=== PATIENT | female | born 1960 | race Caucasian/White ===

== ENCOUNTER 2025-01-29 09:49 | Emergency (ER) | payer OTHER, SELFPAY ==
--- OUTSIDE RECORDS SUMMARY | 2025-01-29 09:53 | XMS_ITS | Clinical Summary ---
Author Organization [facility] Address [address] [place] [address] Care Team Providers Care Stripper Opaquer Name Role Phone Joey Sanchez MD Primary Care Provider [phone] Allergies No known active allergies Medications multivitamin tablet tablet take 1 tablet by oral route every day with food 0 05/20/2011 Active cholecalciferol (VITAMIN D3) 2,000 unit tablet take 1 by oral route every day 0 10/13/2012 Active Active Problems Problem Noted Date Diagnosed Date Mastitis 08/30/2024 Assessment & Plan (08/30/2024 10:17 AM CDT): Appears to be a cellulitis of the lower half of right breast with implant and hx of radiation therapy. Recommend going to [facility] where her heme/onc doctor is located as we do not have plastic surgery at [facility] at this time. May need IV antibiotics. Patient agrees with plan. 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 Overview (07/31/2016): MIXED HYPERLIPIDEMIA Osteopenia 10/30/2012 Overview (08/02/2016): Osteopenia Malignant neoplasm of breast 10/13/2012 Overview (08/02/2016): Breast cancer Encounters Date Type Department Care Team Description 12/09/2024 4:16 PM CDT - 12/09/2024 11:59 PM CDT Hospital Encounter [facility] [address] [place] [address] Screening mammogram, encounter for Discharge Disposition: Discharge to home or self care from Last 3 Months Surgical History Surgery Date Site/Laterality Comments MASTECTOMY 04/28/2009 - 04/27/2010 Mastectomy OTHER SURGICAL HISTORY 04/28/2009 - 04/27/2010 Cancer, breast: mastectomy-breast reconstruction OTHER SURGICAL HISTORY 04/28/2009 - 04/27/2010 Stage IIIA (T2N2M0) right sided breast cancer: Right mastectomy and chemotherapy OTHER SURGICAL HISTORY Left breast lift with small implant OTHER SURGICAL HISTORY port placement for chemo OTHER SURGICAL HISTORY 04/28/1997 - 04/27/1998 LEEP cone bx of cervix OTHER SURGICAL HISTORY 08/02/2015 LGSIL and HR HPV: LEEP HYSTEROSCOPY 08/20/2017 Rt vulvar biopsy CERVICAL BIOPSY W/ LOOP ELECTRODE EXCISION 08/20/2017 HYSTERECTOMY 05/24/2020 Medical History Medical History Date Comments Hx Other Medical Genital warts a ge 18 Hx Other Medical 2009 LGSIL pap Hx Other Medical LGSIL and HR HP V; Comments: JT 08/29/2015 - path was benign. Abnormal Pap smear of cervix [place], ASCUS, HPV Breast cancer, right (HCC) 2009 Stage IIIA (T2N2M0) right sided breast cancer History of chemotherapy History of radiation therapy Family History Medical History Relation Name Comments Other Brother 2 Alive and well; Lung cancer Father Cancer -lung; / Cancer, lung; Other Father Lip Cancer; Prostate cancer Father Cancer -pros raygoza; /Cancer, prostate; Breast cancer Father's Sister Cancer, erasmo ast; Depression Mother Depression; Relation Name Status Comments Brother 1 Alive Brother 2 Father Alive Father's Sister Mother Alive Social History Tobacco Use Types Packs/Day Years Used Date Smoking Tobacco: Never Smokeless Tobacco: Never Tobacco Cessation:Counseling Given: Not Answered Alcohol Use Standard Drinks/Week Comments Yes 0 (1 standard drink = 0.6 oz pur e alcohol) socially PHQ-2 Answer Date Recorded PHQ-2 Total Score (If total score is 3 or more points, staff should administer the PHQ-9) 0 05/12/2023 Comments No Sex and Gender Information Value Date Recorded Sex Assigned at Not on file Legal Sex Female 6:06 PM COMPUTER SYSTEMS SOFTWARE ENGINEER Gender Identity Female 06/19/2020 12:40 PM COMPUTER SYSTEMS SOFTWARE ENGINEER Sexual Orientation Not on file Obstetrics History Para Term AB IAB SAB Ectopic Multiple Livin g Live Births 2 2 2 2 2 Date Outcome GA Total Labor Labor/2nd/3rd Weight Sex Type Anes PTL Casie A1 A5 Name Clin 8 Term 40w 0d F Vag-S pont Living 1 Term 40w 0d F Vag-S pont Living Last Filed Vital Signs Vital Sign Reading Time Taken Comments Blood Pressure 122/78 08/30/2024 9:40 AM CDT Pulse 78 05/25/2020 7:00 AM COMPUTER SYSTEMS SOFTWARE ENGINEER Temperature 36.5 C (97.7 F) 05/24/2020 10:50 AM COMPUTER SYSTEMS SOFTWARE ENGINEER Respiratory Rate 18 05/25/2020 7:00 AM COMPUTER SYSTEMS SOFTWARE ENGINEER Oxygen Saturation 100% 05/25/2020 7:00 AM COMPUTER SYSTEMS SOFTWARE ENGINEER Inhaled Oxygen Concentration - - Weight 67.6 kg (149 lb) 12/09/2024 4:19 PM CDT Height 162.6 cm (5' 4) 08/30/2024 9:40 AM CDT Body Mass Index 25.58 08/30/2024 9:40 AM CDT Plan of Treatment Health Maintenance Due Date Last Done Comments Hepatitis C Screening 1960 DTaP/Tdap/Td Vaccine (1 - Tdap) 07/29/1971 Hepatitis B Screening 1978 Zoster Vaccine (1 of 2) 2010 Colon Cancer Screening-Colonoscopy 10/13/2022 10/13/2012 Depression Screening 05/12/2024 05/12/2023, 10/06/2018, 08/11/2017 Influenza Vaccine (#1) 2024 Regular Well Visit/Exam 18-64 08/09/2025 08/09/2024, 05/12/2023, 04/17/2022, Additional history exists Breast Cancer Screening-Mammogram 12/09/2025 12/09/2024, 05/29/2023, 02/13/2022, Additional history exists Colon Cancer Screening-CT Colonography Discontinued 10/13/2012 Colon Cancer Screening-DNA Stool Discontinued 10/13/2012 Colon Cancer Screening-FIT Discontinued 10/13/2012 Colon Cancer Screening-Sigmoidoscopy Discontinued 10/13/2012 Cervical Cancer Screening Discontinued 2021, 02/27/2021, 10/20/2019, Additional history exists Pneumococcal vaccine <65 Aged Out No longer eligible based on patient's age to complete this topic Procedures Procedure Name Priority Date/Time Associated Diagnosis Comments SCREENING MAMMOGRAM LEFT W VINNY W IMPLANTS Schedule Routine, Read Routine (OP Routine) 12/09/2024 4:41 PM CDT Screening mammogram, encounter for PAP AND HIGH RISK HPV, REFLEX TO GENOTYPING Routine 04/17/2022 2:06 PM COMPUTER SYSTEMS SOFTWARE ENGINEER Encounter for gynecological examination without abnormal finding HM COLONOSCOPY Routine 10/13/2012 from Last 3 Months or Most Recently Relevant to Health Maintenance Results * Screening Mammogram Left W Vinny W Implants (12/09/2024 4:41 PM CDT) Anatomical Region Laterality Modality Breast Left Mammography Impressions 12/09/2024 8:06 PM CDT There is no mammographic evidence of malignancy. A 1 year screening mammogram is recommended. BI-RADS: 1 - Negative. The patient has been or will be contacted. The patient will be entered into a reminder system with a target due date of 1 year for her next mammogram. Narrative 12/09/2024 8:06 PM CDT EXAMINATION: SCREENING MAMMOGRAM LEFT W IMPLANTS ORDERING HEALTHCARE PROVIDER: SELF SCREENING MAMMOGRAM HISTORY: Routine screening mammography. Personal history of breast cancer status post right mastectomy in 2009. COMPARISON: 05/29/2023, 02/13/2022, 11/29/2020, 07/07/2019. TECHNIQUE: CC and MLO views of both breasts were obtained with digital technique using digital breast tomosynthesis with C view. Computer aided detection was utilized. FINDINGS: DENSITY: The breasts have scattered areas of fibroglandular density. BREASTS: A subpectoral silicone breast implant is noted in the left breast. The appearance is stable. The presence of implants decreases sensitivity of mammography. There are no new suspicious findings in the left breast. us Self Screening Mammogram IMG MAMMO PROCEDURES Fi nal Result * Pap and High Risk HPV, reflex to Genotyping (04/17/2022 2:06 PM COMPUTER SYSTEMS SOFTWARE ENGINEER) Clinical indication Comment [facility] - 01 Comment:NEGATIVE FOR INTRAEP ITHELIAL LESION OR MALIGNANCY. Specimen adequacy: Comment [facility] - 01 Comment: Satisfactory for evaluation. Endocervical and/or squamous metaplastic cells (endocervical component) are present. Clinician provided ICD10 Comment [facility] - 01 Comment:[id number] Performed by Comment [facility] - 01 Comment:Steven Mckenzie, Cytot echnologist (ASCP) . . [facility] - 01 Note: Comment [facility] - 01 Comment: The Pap smear is a screening test designed to aid in the detection of premalignant and malignant conditions of the uterine cervix. It is not a diagnostic procedure and should not be used as the sole means of detecting cervical cancer. Both false-positive and false-negative reports do occur. Test methodology Comment [facility] - 01 Comment: This liquid based ThinPrep(R) pap test was screened with the use of an image guided system. HPV Aptima Negative Negative [facility] Comment: This nucleic acid amplification test detects fourteen high-risk HPV types (16,18,31,33,35,39,45,51,52,56,58,59,66,68) without differentiation. HPV Genotype Reflex Comment [facility] - 01 Comment:Criteria not met, HP V Genotype not performed. Thin prep 04/17/2022 2:06 PM COMPUTER SYSTEMS SOFTWARE ENGINEER 04/18/2022 Narrative [facility] - 04/28/2022 9:07 PM COMPUTER SYSTEMS SOFTWARE ENGINEER Performed at: - [address] [id number] Manager Bilingual: Amina Johnston MD, Phone: [phone] Performed at: - [address] [id number] Manager Bilingual: Amina Johnston MD, Phone: [phone] Specimen Comment: No. of containers..01 ThinPrep Vial Jose Angel Marquez MD LAB CYTOLOGY ORDERABLES Fi nal Result [facility] - 01 [facility] 02 * COLONOSCOPY (10/13/2012) Colonoscopy Normal Historical Provider HEALTH MAINTENANCE Final Result from Last 3 Months or Most Recently Relevant to Health Maintenance Insurance [facility] CHOICE PLUS [facility] CHOICE PLUS Advance Directives For more information, please contact: [phone] * Full Code (Latest Code Status on File) Date Activated Date Inactivated Comments 05/24/2020 10:51 AM 05/25/2020 5:33 PM * Full Code Date Activated Date Inactivated Comments 08/20/2017 11:42 AM 08/20/2017 3:13 PM Care Teams Stripper Opaquer Relationship Specialty Start Date End Date Joey Sanchez MD [address] [place] [address] PCP - General Family Medicine 07/06/24
--- OUTSIDE RECORDS SUMMARY | 2025-01-29 09:53 | XMS_ITS | Encounter Summary ---
Author Organization [facility] Address [address] [place] [address] Care Team Providers Care Handbag Designer Name Role Phone Sandhya Rascon Primary Care Provider [phone] Mannie Gan MD Unavailable [phone] Encounter Details Date Type Department Care Team (Late st Contact Info) Description 05/04/2021 [employer] Message Enc [facility] Family & Internal Medicine [place] [address] [place] [address] Sandhya Rascon APNP [address] [place] [address] RELEASE LETTER Social History Tobacco Use Types Packs/Day Years Used Date Smoking Tobacco: Never Smokeless Tobacco: Never Alcohol Use Standard Drinks/Week Comments Yes 0 (1 standard drink = 0.6 oz pur e alcohol) occasional weekend Comments No Sex and Gender Information Value Date Recorded Sex Assigned at Not on file Legal Sex Female 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 Gender Identity Not on file Sexual Orientation Not on file 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
--- OUTSIDE RECORDS SUMMARY | 2025-01-29 09:53 | XMS_ITS | Encounter Summary ---
Author Organization [facility] Address [address] [place] [address] Care Team Providers Care Production Grader Name Role Phone Sandhya Rascon Primary Care Provider [phone] Mannie Gan MD Unavailable [phone] Encounter Details Date Type Department Care Team (Late st Contact Info) Description 10/02/2021 [place] Message Enc [facility] Family & Internal Medicine [facility] [address] [place] [address] Sandhya Rascon APNP [address] [place] [address] visit 11/03/21 Social History Tobacco Use Types Packs/Day Years Used Date Smoking Tobacco: Never Smokeless Tobacco: Never Alcohol Use Standard Drinks/Week Comments Yes 0 (1 standard drink = 0.6 oz pur e alcohol) occasional weekend Comments No Sex and Gender Information Value Date Recorded Sex Assigned at Not on file Legal Sex Female 11:52 AM ELECTRICITY TRADER Gender Identity Not on file Sexual Orientation Not on file 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
--- OUTSIDE RECORDS SUMMARY | 2025-01-29 09:53 | XMS_ITS | Clinical Summary ---
Author Organization [facility] Address [address] [place] [address] Care Team Providers Care Securities Attorney Name Role Phone TarahSandhya Sg HENDERSON Primary Care Provider Mannie Gan MD Unavailable [phone] Allergies No known active allergies Medications vitamin D3, cholecalciferol, (CHOLECALCIFEROL ) 1000 UNIT Tab tablet 2,000 Units. 10/13/2012 Active Multiple Vitamins-Mineral s (MULTIVITAMIN ADULT OR) take 1 tablet by oral route every day with food 05/20/2011 Active Active Problems Problem Noted Date Diagnosed Date Dyspnea on exertion 10/28/2019 Precordial pain 10/28/2019 Vitamin D deficiency 04/27/2019 Human papilloma virus (HPV) infection 09/11/2013 Overview (04/27/2019): Overview: High risk HPV infection Multiple-type hyperlipidemia 09/11/2013 Overview (04/27/2019): Overview: MIXED HYPERLIPIDEMIA Osteopenia 10/30/2012 Overview (04/27/2019): Overview: Osteopenia Malignant neoplasm of breast (CMS/HCC HHS/HCC) 0 10/13/2012 Overview (04/27/2019): Overview: Breast cancer Family History Medical History Relation Comments Aneurysm Father Cancer Father Obesity Maternal Grandmother Dementia Mother Stroke Mother Cancer Paternal Aunt breast Cancer Paternal Grandfather brain Relation Status Comments Father (Age 77) Maternal Grandmother Mother Alive Paternal Aunt Paternal Grandfather Social History Tobacco Use Types Packs/Day Years Used Date Smoking Tobacco: Never Smokeless Tobacco: Never Alcohol Use Standard Drinks/Week Comments Yes 0 (1 standard drink = 0.6 oz pur e alcohol) occasional weekend Comments No Sex and Gender Information Value Date Recorded Sex Assigned at Not on file Legal Sex Female 11:52 AM SERVICENOW ADMINISTRATOR DEVELOPER Gender Identity Not on file Sexual Orientation Not on file 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 file Not on file Not on fi le Not on file Not on file Not on file Not on file Last Filed Vital Signs Vital Sign Reading Time Taken Comments Blood Pressure 115/49 01/07/2020 1:32 PM CDT Pulse 80 01/07/2020 1:32 PM CDT Temperature 36.8 C (98.2 F) 01/07/2020 1:32 PM CDT Respiratory Rate 16 01/07/2020 1:32 PM CDT Oxygen Saturation 98% 01/07/2020 1:32 PM CDT Inhaled Oxygen Concentration - - Weight 70.4 kg (155 lb 3.2 oz) 01/07/2020 1:32 P M CDT Height 162.6 cm (5' 4) 01/07/2020 1:32 PM CDT Body Mass Index 26.64 01/07/2020 1:32 PM CDT Plan of Treatment Health Maintenance Due Date Last Done Comments Cervical Cancer Screening Pa p Smear (Age 30 to 64) Every 3 Years 1960 Colorectal Cancer Screening Colonoscopy (10 Years) 1960 Annual Physical 07/29/1963 Hepatitis C 1978 DTaP, Tdap and Td Vaccines ( 1 - Tdap) 07/29/1979 Cervical Cancer Screening Pa p with HPV Testing (Age 30 to 64) Every 5 Years 1990 Cervical Cancer Screening wi th HPV 1990 Pneumococcal Vaccine: 50+ Years (1 of 1 - PCV) 2010 Zoster Vaccines (1 of 2) 2010 PHQ-2 (Physician [place]) 04/28/2024 COVID-19 Vaccine (2023-2 5 season) 2024 Mammogram Screening 05/29/2025 05/29/2023, 07/07/2019 RSV Immunization or 60+ Years (1 - 1-dose 75+ series) 07/29/2035 Meningococcal B Vaccine Aged Out No l onger eligible based on patient's age to complete this topic Meningococcal Vaccine Aged Out No george ann eligible based on patient's age to complete this topic RSV Immunizations Under 20 Months Aged Out No longer eligible b ased on patient's age to complete this topic Procedures Procedure Name Priority Date/Time Associated Diagnosis Comments MAMMOGRAM GENERIC (SCAN ORDER) 05/29/2023 from Last 3 Months or Most Recently Relevant to Health Maintenance Results * MAMMOGRAM GENERIC (SCAN ORDER) (05/29/2023) Anatomical Region Laterality Modality Other 05/29/2023 [facility] Scanned SCANNING Final Resu lt from Last 3 Months or Most Recently Relevant to Health Maintenance Insurance Care Teams Securities Attorney Relationship Specialty Start Date End Date Sandhya Rascon APNP [address] [place], [place] [id number] PCP - General NURSE PRACTITIONER 04/27/19 Mannie Gan MD [address] [facility] [address] [place] [address] [place] Accounts Clerk CARDIOVASCULAR DISEASE 05/19/19
--- OUTSIDE RECORDS SUMMARY | 2025-01-29 09:53 | XMS_ITS | Clinical Summary ---
Author Organization [facility] Address [address] [place] [address] Phone Care Team Providers Care Metal Hanging Helper Name Role Phone Provider, None Primary Care Provider Unavailabl e Allergies No known active allergies Medications No known medications Active Problems No known active problems Social History Tobacco Use Types Packs/Day Years Used Date Smoking Tobacco: Never Smokeless Tobacco: Never Comments No Sex and Gender Information Value Date Recorded Sex Assigned at Not on file Legal Sex Female 8:52 PM CDT Gender Identity Not on file Sexual Orientation Not on file Last Filed Vital Signs Vital Sign Reading Time Taken Comments Blood Pressure 120/62 09/03/2022 1:29 PM CDT Pulse 68 09/03/2022 1:29 PM CDT Temperature 36.7 C (98.1 F) 09/03/2022 1:29 PM CDT Respiratory Rate 16 09/03/2022 1:29 PM CDT Oxygen Saturation 99% 09/03/2022 1:29 PM CDT Inhaled Oxygen Concentration - - Weight - - Height - - Body Mass Index - - Plan of Treatment Health Maintenance Due Date Last Done Comments Hepatitis C Virus (HCV) Screening 1960 TdaP Immunization 1960 Cologuard 2005 Colonoscopy 2005 Pneumococcal Immunization (50+ years) (1 of 1 - PCV) 2010 Zoster Immunization (1 of 2) 2010 Colorectal Cancer Screening 04/17/2023 Immunochemical Fecal Occult Blood 04/17/2023 04/17/2022 Influenza Immunization (#1) 2024 SARS-COV-2 Immunization ( - season) 2024 Respiratory Syncytial Virus (RSV) Immunization (Adult) (1 - 1-dose 75+ series) 07/29/2035 Mammogram Unilateral Discontinued 07/07/2019, 02/19/2018, 02/11/2017, Additional history exists Hepatitis B Immunization Aged Out No longer eligible based on patient's age to complete this topic Human Papillomavirus (HPV) Immunization Aged Out No longer eligible based on patient's age to complete this topic Meningococcal Immunization (ACWY) Aged Out No longer eligible based on patient's age to complete this topic Rotavirus Immunization Aged Out No lo nger eligible based on patient's age to complete this topic Insurance [facility] [place] [address] Care Teams Metal Hanging Helper Relationship Specialty Start Date End Date Provider, None [place] PCP - General 09/03/22
--- OUTSIDE RECORDS SUMMARY | 2025-01-29 09:53 | XMS_ITS | Encounter Summary ---
Author Organization [facility] Address [address] [place] [address] Care Team Providers Care Livestock Producer Name Role Phone Sandhya Rascon Primary Care Provider [phone] Mannie Gan MD Unavailable [phone] Encounter Details Date Type Department Care Team (Late st Contact Info) Description 05/04/2021 MyChart Message Enc [facility] Medical Group Family & Internal Medicine [facility] [address] [place] [address] Sandhya Rascon APNP [address] [place] [address] Covid 19 Test Results Social History Tobacco Use Types Packs/Day Years Used Date Smoking Tobacco: Never Smokeless Tobacco: Never Alcohol Use Standard Drinks/Week Comments Yes 0 (1 standard drink = 0.6 oz pur e alcohol) occasional weekend Comments No Sex and Gender Information Value Date Recorded Sex Assigned at Not on file Legal Sex Female 11:52 AM BRANCH CHIEF Gender Identity Not on file Sexual Orientation Not on file 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
--- OUTSIDE RECORDS SUMMARY | 2025-01-29 09:54 | XMS_ITS ---
Author Organization [employer] [facility] [place] Address [address] [place] [address] Phone Care Team Providers Care Power Tool Repairer Name Role Phone Sandhya Rascon PBX OPERATOR Primary Care Provider + Active Problems Patient Care Coordination No te Formatting of this note migh t be different from the original. Primary Care: No primary provider on file. 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 Mx) IDC RIGHT breast ER 97% [place] 88% HER2/mandi - Ki67 4- 9% Grade 1; multifocal PREmeno NEOADJUVANT TMX 2-3 months S/p mastectomy and ALND 2.4cm 4:6LN 06/2009 MRI 2 lesions 1.8cm and 2cm, other enhancement ONCOTYPE 5% (Recurrence Score 4) 08/11/09 AC x4 -- weekly taxol x 8 finished 11/23/09 S/p Radiation 02/22/10 03/14/10 TMX Assessment & Plan (05/11/2013 2:54 PM ASSEMBLIES AND INSTALLATIONS INSPECTOR): 4 years out mammo left Aug TMX Assessment & Plan (05/07/2012 8:55 AM ASSEMBLIES AND INSTALLATIONS INSPECTOR): 3 years out Insomnia with TMX - will change times ROV 1 year Assessment & Plan (11/04/2011 3:48 PM CDT): 2 1/2 years out TMX ok Mammo on left today NEGATIVE labs per PCP No periods Assessment & Plan (04/02/2011 1:15 PM ASSEMBLIES AND INSTALLATIONS INSPECTOR): 2 years out On TMX 1 year No periods Nervous on TMX Had labs per PCP Mammo in September Assessment & Plan (09/27/2010 3:18 PM CDT): 1 1/2 years out On TMX 1 1/2 years - NO PERIODS since diagnosis Breast lift with implant on left 6 weeks ago Colonoscopy about 4 years ago ROV 6 months Assessment & Plan (06/21/2010 3:34 PM ASSEMBLIES AND INSTALLATIONS INSPECTOR): On TMX - doing well but some insomnia Working out at night - wired Melatonin, benadryl, yoga ROV 3 month Assessment & Plan (03/14/2010 3:39 PM ASSEMBLIES AND INSTALLATIONS INSPECTOR): Finished RT LMP a year ago Start TMX today for two years then FEMARA ROV 3 months Check labs Assessment & Plan (11/28/2009 3:34 PM CDT): Taxol finished 11/22 RT to start 4 weeks after surgery. TMX after RT Will get PORT out ROV 3 months Assessment & Plan (11/08/2009 9:59 AM CDT): Taxol #3 today ROV 2 weeks for last dose Fatigued for few days o/w things are going well Tipple Boss out 2 weeks after last dose Mammogram was October 11 on left Assessment & Plan (10/24/2009 10:50 AM CDT): Taxol #2 today ROV 2 weeks for cycle 3 Doing well Mammgoram left October 11 Assessment & Plan (10/09/2009 10:30 AM CDT): Finished AC Heat rash on back of neck aSaw surgeon today; mammogram today on left Start taxol today ROV 2 weeks. 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 4/6 LNs Discussed chemo since young, 4LNs and size - spoke with MALOU ELIZABETH and Ashkan PORT ROV 1-2 weeks for AC adn taxol Assessment & Plan (06/13/2009 3:11 PM ASSEMBLIES AND INSTALLATIONS INSPECTOR): On TMX 1 month Mass almost not palpable! LN barely palpable. Needs appt with CLARA to discuss surgery options and reconstruction adn RT ROV post op Assessment & Plan (04/03/2009 11:18 AM ASSEMBLIES AND INSTALLATIONS INSPECTOR): IOV for neoadjuvant. Here with boyfriend (?Pancho?). Going to [place] for 1 week after Xmas [place] lump 1 week ago Had mammogram 6 months ago which was negative On OCPs currently; was on it 11 years Ordered oncotype Neoadjuvant TMX for 1 month See week after Xmas - cont TMX if shrinking; will have tests results back then Current Treatment and Therapy Plans No current plan information found. Past Treatment and Therapy Plans No past plan information found. Lifetime Dose Tracking * Chemical Lifetime Dose Automatic Entry Manual Entr y doxorubicin 233.238 mg/m2 (400 mg) 233.238 mg/m2 (400 mg) 0 mg/m2 (0 mg) Effective Dose 1.62 mSv 1.62 mSv 0 mSv Total DLP 80.03 DLP 80.03 DLP 0 DLP CTDIvol Max 2.04 mGy 2.04 mGy 0 mGy
--- OUTSIDE RECORDS SUMMARY | 2025-01-29 09:54 | XMS_ITS | Clinical Summary ---
Author Organization [employer] [facility] [place] Address [address] [place] [address] Phone Care Team Providers Care Software Tester Name Role Phone Sandhya Rascon DISTANCE EDUCATION FACULTY LIAISON Primary Care Provider + Allergies No known active allergies Medications MULTIVITAMIN (MULTIPLE VITAMIN ORAL)Indication s:Breast cancer (CMS/HCC) Take by mouth. Activ e cholecalciferol , Vitamin D3, 2,000 unit Tablet Take by mouth daily. Active ibuprofen (MOTRIN) 400 mg tablet Take 1 Tablet (400 mg) by mouth every 6 hours as needed for pain secondary to inflammation. 40 Tablet 09/16/2024 10:16 AM CDT 5 Active docusate sodium (COLACE) 100 mg capsule Take 1 Capsule (100 mg) by mouth 2 times daily. 60 Capsule 09/16/2024 10:19 AM CDT 5 Active HYDROcodone-melany taminophen (NORCO) 10-325 mg TabletIndicatio ns:Cellulitis of right breast Take 1 Tablet by mouth every 4 hours as needed for Pain. Max Daily Amount: 6 Tablets 30 Tablet 09/16/2024 10:19 AM CDT 5 Active hydrOXYzine HCL (ATARAX) 50 mg tablet Take 1 Tablet (50 mg) by mouth every 6 hours as needed for Itching. 30 Tablet 09/16/2024 10:19 AM CDT 5 Active ondansetron (ZOFRAN) 4 mg Tablet Take 1 Tablet (4 mg) by mouth every 8 hours as needed for Nausea/Vomiting. 20 Tablet 09/16/2024 10:19 AM CDT 5 Active naloxone (NARCAN) 4 mg/spray [place], Non-Aerosol EMERGENCY USE ONLY: Administer 1 spray (4 mg) in one nostril one time. May repeat in alternating nostrils every 2-3 min until responsive or EMS arrives. 2 Each 3 09/16/2024 10:19 AM CDT 5 Active Active Problems Patient Care Coordination No te Formatting of this note migh t be different from the original. Primary Care: No primary provider on file. Referring Provider: Jose Angel Marquez MD [address] [place] [address] [place] [address] Other:Kindra Rodriguez DISTANCE EDUCATION FACULTY LIAISON - same office Problem Noted Date Diagnosed Date Abnormal sensation of thorax 08/31/2024 Cellulitis of right breast 08/30/2024 S/P right mastectomy 10/09/2009 Breast Cancer- locally advanced 03/30/2009 Overview (03/14/2010): 03/28/09 Stage IIIa (T2 N2 Mx) IDC RIGHT breast ER 97% [place] 88% HER2/mandi - Ki67 4- 9% Grade 1; multifocal PREmeno NEOADJUVANT TMX 2-3 months S/p mastectomy and ALND 2.4cm 4:6LN 06/2009 MRI 2 lesions 1.8cm and 2cm, other enhancement ONCOTYPE 5% (Recurrence Score 4) 08/11/09 AC x4 -- weekly taxol x 8 finished 11/23/09 S/p Radiation 02/22/10 03/14/10 TMX Assessment & Plan (05/11/2013 2:54 PM STRATEGIC COMMUNICATIONS MANAGER): 4 years out mammo left Aug TMX Assessment & Plan (05/07/2012 8:55 AM STRATEGIC COMMUNICATIONS MANAGER): 3 years out Insomnia with TMX - will change times ROV 1 year Assessment & Plan (11/04/2011 3:48 PM CDT): 2 1/2 years out TMX ok Mammo on left today NEGATIVE labs per PCP No periods Assessment & Plan (04/02/2011 1:15 PM STRATEGIC COMMUNICATIONS MANAGER): 2 years out On TMX 1 year No periods Nervous on TMX Had labs per PCP Mammo in September Assessment & Plan (09/27/2010 3:18 PM CDT): 1 1/2 years out On TMX 1 1/2 years - NO PERIODS since diagnosis Breast lift with implant on left 6 weeks ago Colonoscopy about 4 years ago ROV 6 months Assessment & Plan (06/21/2010 3:34 PM STRATEGIC COMMUNICATIONS MANAGER): On TMX - doing well but some insomnia Working out at night - wired Melatonin, benadryl, yoga ROV 3 month Assessment & Plan (03/14/2010 3:39 PM STRATEGIC COMMUNICATIONS MANAGER): Finished RT LMP a year ago Start [...] few days o/w things are going well Retail Advisor out 2 weeks after last dose Mammogram [...] - spoke with MALOU ELIZABETH and Ashkan ATWOOD ROV 1-2 weeks for AC adn taxol Assessment & Plan (06/13/2009 3:11 PM STRATEGIC COMMUNICATIONS MANAGER): On TMX 1 month Mass almost not palpable! LN barely palpable. Needs appt with CLARA to discuss surgery options and reconstruction adn RT ROV post op Assessment & Plan (04/03/2009 11:18 AM STRATEGIC COMMUNICATIONS MANAGER): IOV for neoadjuvant. Here with boyfriend (?Pancho?). Going to [place] for 1 week after Xmas [place] lump 1 week ago Had mammogram 6 months ago which was negative On OCPs currently; was on it 11 years Ordered oncotype Neoadjuvant TMX for 1 month See week after Xmas - cont TMX if shrinking; will have tests results back then Encounters Date Type Department Care Team Description 01/25/2025 External Device Data ST[facility] ABSTRACTION Provider, Abstract 01/11/2025 External Device Data [facility] ABSTRACTION Provider, Abstract 12/28/2024 External Device Data ST[facility] ABSTRACTION Provider, Abstract 12/22/2024 External Device Data STL ABSTRACTION Provider, Abstract 12/01/2024 External Device Data [facility] ABSTRACTION Provider, Abstract 11/30/2024 External Device Data STL ABSTRACTION Provider, Abstract 11/02/2024 External Device Data STL ABSTRACTION Provider, Abstract from Last 3 Months Family History Medical History Relation Name Comments Healthy Daughter 1 Healthy Daughter 2 Lung Cancer Father alive age 77yr; cancer past 2 yrs Prostate Cancer Father Heart Disease Maternal Grandmother Healthy Mother alive age 68y Breast Cancer Paternal Aunt dx at age 60s Relation Name Status Comments Daughter 1 Alive Daughter 2 Alive Father Alive Maternal Grandmother Mother Alive Paternal Aunt Alive Social History Tobacco Use Types Packs/Day Years Used Date Smoking Tobacco: Never Smokeless Tobacco: Never Alcohol Use Standard Drinks/Week Comments Yes 0 (1 standard drink = 0.6 oz pur e alcohol) few times a month Feeling Safe Answer Date Recorded Are you in a relationship wi th someone who hurts you emotionally and/or physically? 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 Not on file Not on file Not on file Last Filed Vital Signs Vital Sign Reading Time Taken Comments Blood Pressure 122/70 10/27/2024 12:54 PM CDT Pulse 69 09/16/2024 8:22 AM CDT Temperature 36.4 C (97.6 F) 09/16/2024 8:22 AM CDT Respiratory Rate 16 09/16/2024 8:22 AM CDT Oxygen Saturation 100% 09/16/2024 8:22 AM CDT Inhaled Oxygen Concentration - - Weight 65.8 kg (145 lb) 10/27/2024 12:54 PM CDT Height 162.6 cm (5' 4) 10/27/2024 12:54 PM CDT Body Mass Index 24.89 10/27/2024 12:54 PM CDT Plan of Treatment Upcoming Encounters Date Type Department Care Team (Late st Contact Info) Description 05/04/2025 9:45 AM STRATEGIC COMMUNICATIONS MANAGER Office Visit [facility] at [facility] Medicine [address] [place] [address] Bar Emery MD [address] [place] [address] Health Maintenance Due Date Last Done Comments DTAP/TDAP/TD VACCINES (1 - Tdap) 07/29/1979 HPV/Cotest (21-29) 1981 CERVICAL CANCER SCREENING 1990 HPV/Cotest (30-65) 1990 PAP SMEAR 1990 COLORECTAL SCREENING 2005 Colorectal Cancer Screening 2005 FIT-DNA Q 3 years 2005 FIT/FOBT Q 1 year 2005 Flex Sig/CT Colonography Q 5 years 2005 ZOSTER VACCINE (1 of 2) 2010 BREAST CANCER SCREENING 05/29/2024 05/29/19, 05/29/2023, 02/13/2022, Additional history exists INFLUENZA VACCINE (#1) 2024 RSV VACCINE (60+ or ) (1 - 1-dose 75+ series) 07/29/2035 Medical Devices Implanted Type Area Pottery Decorator Device Identifier Shelf Expiration Date Model / Serial / Lot Port Powerport Mri 8fr [id number] - [id number] Implanted:Qty: 1 on 08/11/2009 at [facility] Port Left: Chest Wall CR BARD- ACCESS SYS 06/27/2011 [id number] / [id number] / [id number] Explanted Type Area Pottery Decorator Device Identifier Shelf Expiration Date Model / Serial / Lot Allergan Breast Implant Style [id number] Cc Explanted:Qty: 1 on 09/15/2024 by Bar Emery MD at [facility] Right: Breast / / [id number] Procedures Procedure Name Priority Date/Time Associated Diagnosis Comments MAMMO 3D MIN SCREEN IMPL UNI LT W OR WO CAD Routine 07/07/2019 7:50 AM CDT Breast cancer screening by mammogram from Last 3 Months or Most Recently Relevant to Health Maintenance Results * MAMMO SCRN UNI LT IMPL 3D MIN W OR WO CAD (07/07/2019 7:50 AM CDT) Anatomical Region Laterality Modality Breast Left Mammography 07/07/2019 7:50 AM CDT Impressions 07/07/2019 9:13 AM CDT IMPRESSION: 1. No concerning developing abnormality identified. OVERALL FINAL ASSESSMENT: BI-RADS CATEGORY 2: Benign findings RECOMMENDATION: 1. Recommend annual mammography. Narrative 07/07/2019 9:13 AM CDT LEFT UNILATERAL DIGITAL SCREENING MAMMOGRAPHY WITH TOMOSYNTHESIS AND CAD DATE: 07/07/2019 7:50 AM DICTATION LOCATION: [facility] HISTORY: Personal history of breast cancer with right mastectomy. Routine yearly screening mammogram of the left breast. TECHNIQUE: Standard views of the left breast were obtained on a digital system. 2D and 3D image acquisitions were obtained CAD was utilized. COMPARISON: Comparison made to study dated 02/19/2018 and 02/11/2017 BREAST COMPOSITION: Scattered fibroglandular densities FINDINGS: No new dominant masses, suspicious calcifications, parenchymal asymmetry or areas of architectural distortion are identified in the left breast. Since the prior study, there has been no significant interval change. There is a subpectoral silicone implant identified. Please note that the implant displaced MLO and CC are mislabeled. Procedure Note Josesito Person MD - 07/07/2019 LEFT UNILATERAL DIGITAL SCREENING MAMMOGRAPHY WITH TOMOSYNTHESIS AND CAD DATE: 07/07/2019 7:50 AM DICTATION LOCATION: [facility] HISTORY: Personal history of breast cancer with right mastectomy. Routine yearly screening mammogram of the left breast. TECHNIQUE: Standard views of the left breast were obtained on a digital system. 2D and 3D image acquisitions were obtained CAD was utilized. COMPARISON: Comparison made to study dated 02/19/2018 and 02/11/2017 BREAST COMPOSITION: Scattered fibroglandular densities FINDINGS: No new dominant masses, suspicious calcifications, parenchymal asymmetry or areas of architectural distortion are identified in the left breast. Since the prior study, there has been no significant interval change. There is a subpectoral silicone implant identified. Please note that the implant displaced MLO and CC are mislabeled. IMPRESSION: 1. No concerning developing abnormality identified. OVERALL FINAL ASSESSMENT: BI-RADS CATEGORY 2: Benign findings RECOMMENDATION: 1. Recommend annual mammography. Sherie Thacker MD MAMMO ORDERABLES Final Resul t from Last 3 Months or Most Recently Relevant to Health Maintenance Insurance [facility] [id number] RX [employer] RX Member Subscriber Plan / Payer (Ef fective 2024-Present) Name:Erinn Gaffney Relation to Subscriber:Self Name:Erinn Gaffney Subscriber ID:Not on file Payer ID:Not on file Group ID:[id number] Type:RX Commercial Address: [address] Advance Directives For more information, please contact: [phone] * Full Code (Latest Code Status on File) Date Activated Date Inactivated Comments 09/15/2024 9:32 AM 09/16/2024 12:38 PM * Full Code Date Activated Date Inactivated Comments 09/15/2024 5:48 AM 09/15/2024 9:32 AM * Full Code Date Activated Date Inactivated Comments 08/30/2024 5:39 PM 09/03/2024 5:06 PM * Full Code Date Activated Date Inactivated Comments 04/11/2010 8:46 AM 04/12/2010 2:32 AM * Full Code Date Activated Date Inactivated Comments 08/11/2009 8:06 AM 08/11/2009 4:59 PM Care Teams Software Tester Relationship Specialty Start Date End Date Sandhya Rascon NP [address] [place] [phone] PCP - General NURSE PRACTITIONER 05/17/19
--- NOTE | 2025-01-29 10:00 | ED_ITS ---
HPI - URI/Sore Throat General Chief Complaint: Upper Respiratory Infection Stated Complaint: strep Time Seen by Provider: 01/29/25 09:50 Source: patient Mode of arrival: ambulatory Limitations: no limitations History of Present Illness HPI Narrative: Patient is a 64-year-old female who presents with sore throat, congestion and fever for 2 days. Reports highest of 101. Denies any nausea, vomiting, diarrhea. Has taken [id number] medication with no relief. Related Data Home Medications ?Medication ?Instructions ?Recorded ?Confirmed ?Last Taken ?Type No Home Medications 10/06/23 01/29/25 U nknown History Allergies Allergy/AdvReac Type Severity Reaction Status Date / Time No Known Allergies Allergy Verified 01/29/25 10:03 Review of Systems Review of Systems: All systems reviewed & are unremarkable except as noted in HPI and below Constitutional: Constitutional: Denies chills, Denies fatigue, Reports fever(s), Denies headache(s), Denies malaise and Denies weakness Eyes: Eyes: Denies blurry vision, Denies itchy eyes and Denies loss of vision ENT: Denies otalgia, Denies headache(s), Reports nasal congestion, Denies sinus pain and Reports sore throat Cardiovascular: Cardiovascular: Denies chest pain, Denies irregular heart rhythm and Denies dyspnea Respiratory: Respiratory: Denies cough and Denies dyspnea Gastrointestinal: Gastrointestinal: Denies abdominal pain, Denies diarrhea, Denies nausea and Denies vomiting Musculoskeletal: Musculoskeletal: Denies back pain, Denies myalgias and Denies arthralgias Integumentary/Breasts: Skin/Breast: Denies pruritus and Denies rash Neurologic: Denies headache(s), Denies loss of vision and Denies weakness Psychiatric: Psychiatric: Reports no additional psychiatric complaints Endocrine: Endocrine: Denies fatigue Allergic/Immunologic: Allergic/Immunologic: Denies itchy eyes PMFSH Past Medical History Medical History Hyperlipidemia Screening for lipid disorders Breast cancer Rhinorrhea BMI 25.0-25.9,adult Surgical History Surgical History Hx of hysterectomy Hx of mastectomy Family History Family History Father Lung cancer Malignant neoplasm of prostate Aneurysm Lip cancer Mother Cornea transplant recipient Cerebrovascular accident Dementia Sibling No problems noted. 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 There is no relevant family history pertinent to the presenting complaint. Exam Const: General: cooperative, healthy appearing, comfortable, no acute distress and well nourished Nutritional Appearance: well nourished Orientation/consciousness: patient oriented x3 Limitations: no limitations HENMT: Head: normal to inspection, normocephalic and atraumatic Ears: hearing grossly normal bilaterally, external ears normal, TM's normal bilaterally, EAC's normal and no periauricular adenopathy Face/Nose/Sinus: Normal external nose present, Abnormal mucous membranes and turbinates present e rythematous bilateral and diffuse, normal facial exam, sinuses nontender and face symmetric Face and sinus: normal facial exam, sinuses nontender and face symmetric Mouth: Yes Normal oral and palatal mucosa present, Yes lip normal, Yes tongue normal, Yes Normal salivary glands and ducts present, Yes oropharynx normal and Yes moist mucous membranes Teeth and gingiva: dentition normal Throat: tonsils normal, uvula midline and posterior oropharynx abnormal erythema Eyes: General: appearance normal, both eyes and all related structures Alignment and Position: alignment normal and position normal Periorbital: periorbital findings normal Eyelids: eyelids normal Pupils: Equal, round and reactive pupils present Neck: Neck: normal visual inspection, full ROM, no lymphadenopathy and supple Chest: Chest palpation & inspection: normal inspection of the chest and normal palpation of entire chest wall Resp: Effort & Inspection: normal respiratory effort and able to speak in complete sentences Auscultation: clear to auscultation bilaterally, no crackles, no rales, no rhonchi and no wheezes Cardio: Rate: regular rate Rhythm: regular rhythm Heart sounds: S1 normal heart sound present and S2 normal heart sound present GI: Inspection: normal to inspection Skin: General skin exam: normal color and no rashes or lesions noted Neuro: General: patient oriented x3 and moves all extremities Cranial nerves: Yes Equal, round and reactive pupils present Speech: normal speech Gait exam (Neuro): Normal gait present Extrem: General: normal to inspection, full ROM and no edema Psych: Appearance: grossly normal and well kempt Mental Status: mental status grossly normal Speech and movement: Normal speech and movement present Affect: normal affect Attitude: cooperative Thought process: Normal thought process present Course Course Emergency Course: Discharge instructions reviewed with patient, as well as provided in writing per nursing staff. The instructions also include specific and strict return/GO TO THE ER as well as f/u information. All questions have been answered, and the patient deny any further questions with discharge and discharge plan. Portions of this record may have been created with voice recognition software Level of Care: Express Care Visit Vital Signs Vital signs: Vital Signs Temperature 36.8 C 01/29/25 10:18 Pulse Rate 72 01/29/25 10:18 Respiratory Rate 18 01/29/25 10:18 Blood Pressure 125/73 01/29/25 10:18 Pulse Oximetry 99 01/29/25 10:18 Oxygen Delivery Room Air 01/29/25 10:18 Temperature 36.8 C 01/29/25 10:18 Pulse Rate 72 01/29/25 10:18 Respiratory Rate 18 01/29/25 10:18 Blood Pressure 125/73 01/29/25 10:18 Pulse Oximetry 99 01/29/25 10:18 Oxygen Delivery Room Air 01/29/25 10:18 Reviewed MDM - URI/Sore Throat MDM Narrative Medical decision making narrative: Pt well hydrated appearing, in no respiratory distress, hemodynamically stable. Recommend supportive care. The patient is stable at time of discharge the clinical impression was discussed and the patient was given the opportunity to ask questions, which were addressed as completely as possible given the information available at present. Anticipatory guidance and return to care precautions were discussed and the importance of primary care follow-up was stressed and encouraged. The patient voiced understanding of the plan, indications to return, and the need for follow-up. Exam findings show no acute concerns or changes Patient is appropriate for outpatient treatment and follow-up. Differential diagnosis considered: Murry virus, strep pharyngitis, allergic rhinitis, upper respiratory tract infection, sinusitis, rhinosinusitis, nasopharyngitis. viral pharyngitis, otitis media, otitis externa, otitis e ffusion, foreign body, cerumen impaction, viral syndrome, and influenza.? Medical Records Attestation: I reviewed the patient's medical records. Lab Data Attestation: I reviewed the patient's lab results. Labs: Lab Results 01/29/25 Range/Units 10:26 POC Grp A Strep Screen Negative (Negative) Discharge Plan Discharge Clinical Impression: Upper respiratory infection Qualifiers: URI type: acute nasopharyngitis (common cold) Qualified Code(s): J00 - Acute nasopharyngitis [common cold] Patient Disposition: Home Condition: Stable Instructions: Upper Respiratory Infection (ED) Additional Instructions: Your rapid strep swab was negative today at [facility]. A throat culture will be sent to the laboratory for further testing. If the test is positive, you will receive a phone call within 48 hours and an appropriate antibiotic will be initi ated at that time. Your Covid and flu are both negative Your symptoms are likely due to a viral illness, which is not treated with antibiotics. Viral symptoms can be present for up to a few weeks. -For pain/fever, you may take: Tylenol 650-1000mg by mouth every 4-6 hours. Do not exceed 4000mg in 24 hours. Advil (Ibuprofen) 600 mg by mouth every 6 hours. Do not exceed 2400mg in 24 hours. 8 AM: Tylenol 11 AM: Ibuprofen 2 PM: Tylenol 5 PM: Ibuprofen 8 PM: Tylenol 11 PM: Ibuprofen 2 AM: Tylenol 5 AM: Ibuprofen -Antihistamine medication such as Benadryl/Zyrtec at night and Claritin/Shruthi during the day can help improve symptoms. -Use Flonase twice a day for 5 days then daily to help reduce the inflammation and dry up your sinuses. -You can also use Sudafed behind the pharmacy counter(12 or 24 hour). Be sure to drink plenty of water with these medications at least 8 ounces with every dose and it is important to drink 8 to 10 glasses of water per day. Water is a natural decongestant -Eat and drink things that are easy to swallow, like tea or soup, or popsicles. -Oral rinses such as: Salt water gargles and/or may use topical anesthetic (eg. Chloraseptic spray) or lozenges to relieve dryness or throat pain). -Frequent hand washing or hand wallcovering texturer is one of the best ways to prevent spread of infection. -Using a vaporizer or humidifier at night will also help thin secretions and help with coughing up phlegm. Call your Primary Care Doctor and make a follow-up appointment in 3 days. If your cough worsens, you develop a fever greater than 103, you develop shaking chills, a fast heartbeat, trouble breathing and/or feel you are are breathing much faster than usual, call your Primary Care Doctor or go to the ER. Patient Language: Japanese Prescriptions: No Action No Home Medications Follow-up/Referrals: Joey Sanchez MD [Primary Care Provider, [facility]] - 3 Days Time of Disposition: 10:55
[2025-01-29 10:18] VITALS: BP 125/73; PULSE 72; RESP 18; TEMP 36.8; O2SAT 99
[2025-01-29 10:28] LABS: EDSTREPNEGPOS1 Negative (Negative)
== END 2025-01-29 10:56 | disposition home or self-care (01) ==
PROVIDERS: Emergency Provider Nurse Practitioner Family; PCP Family Medicine
DX: J00 Acute nasopharyngitis [common cold] (principal); E78.5 Hyperlipidemia, unspecified; Z85.3 Personal history of malignant neoplasm of breast; Z90.10 Acquired absence of unspecified breast and nipple
CPT/HCPCS: 87081; 87880; 99213; G0463